=== PATIENT | female | born 1980 | race Caucasian/White ===

== ENCOUNTER 2024-02-28 10:52 | Outpatient (CLI) | payer OTHER, SELFPAY ==
[2024-02-28 15:08] LABS: Bacterial Vaginosis* Negative (Negative); Candida glab/krus NOT DETECTED (No Detected); Candida species DETECTED (No Detected); Trichomonas vaginalis NOT DETECTED (No Detected)
== END 2024-02-28 10:53 | disposition home or self-care (01) ==
PROVIDERS: Visit Provider Registered Nurse
DX: Z01.419 Encounter for gynecological examination (general) (routine) without abnormal findings (principal); N89.8 Other specified noninflammatory disorders of vagina; D64.9 Anemia, unspecified; N92.0 Excessive and frequent menstruation with regular cycle; Z13.6 Encounter for screening for cardiovascular disorders; Z13.1 Encounter for screening for diabetes mellitus
CPT/HCPCS: 80061; 81513; 82728; 82947; 83540; 83550; 84443; 87481; 87661

== ENCOUNTER 2024-03-13 14:45 | Outpatient (CLI) | payer OTHER, SELFPAY ==
--- NOTE | 2024-03-13 15:00 | CRLHL7_ITS ---
For Patients: As a result of the Century Cures Act, medical imaging exams and procedure reports are released immediately into your electronic medical record. You may view this report before your referring provider. If you have questions, please contact your health care provider. INDICATION: Excessive and frequent menstruation COMPARISON: none TECHNIQUE: 2D guerra scale and color Doppler images were acquired of the pelvis using a transabdominal and transvaginal approach. FINDINGS: Posterior uterine fibroid noted which measures 1.4 x 1.2 x 1.4 cm. Uterus measures 8.6 cm in length by 5.1 cm in AP diameter by 6.0 cm in transverse dimension. The endometrial lining measures 11 mm in composite thickness. The right ovary measures 3.1 x 1.7 x 3.4 cm in size and the left ovary measures 2.5 x 1.7 x 1.1 cm. The ovaries demonstrate normal arterial and venous blood flow on color Doppler analysis. There are no suspicious fluid collections within the cul-de-sac. Simple cyst right ovary measures 2.2 cm. IMPRESSION: Endometrium measures 11 millimeters. No endometrial fluid. Small intramural fibroid noted measuring 1.4 cm. Dictated by Maxx Lewis MD @ 03/15/2024 7:17:28 AM (Electronically Signed)
== END 2024-03-13 14:46 | disposition home or self-care (01) ==
LOC: US 14:46
PROVIDERS: Visit Provider Registered Nurse
DX: N92.0 Excessive and frequent menstruation with regular cycle (principal); D25.1 Intramural leiomyoma of uterus; N83.202 Unspecified ovarian cyst, left side
CPT/HCPCS: 76830; 76856

== ENCOUNTER 2025-03-05 10:41 | Outpatient (CLI) | payer OTHER, SELFPAY ==
[2025-03-07 08:32] LABS: HPV Source Cervix; HPV, High Risk by TMA Not Detected
== END 2025-03-05 10:42 | disposition home or self-care (01) ==
PROVIDERS: Visit Provider Registered Nurse
DX: Z11.51 Encounter for screening for human papillomavirus (HPV) (principal); Z12.4 Encounter for screening for malignant neoplasm of cervix
CPT/HCPCS: 87624; 87625; 88141; 88142

== ENCOUNTER 2025-03-22 09:32 | Outpatient (CLI) | payer OTHER, SELFPAY ==
--- NOTE | 2025-03-22 10:53 | P.ANES_ITS ---
Anesthesia Charges Start Date/Time Anesthesia Start Date: 03/22/25 Anesthesia Start Time: 10:17 Stop Date/Time Anesthesia Stop Date: 03/22/25 Anesthesia Stop Time: 10:40 Coding CPT Codes CPT Codes: DIOMEDES LWR INTST SCR COLSC - [id number] ([id number]) P1 - NORMAL HEALTHY PATIENT, QK - CHARGING CAR OPERATOR 2-4 CNCRNT ANES PROC, QX - PUBLIC RELATIONS ANALYST SVC W/ MED DIRECTION
--- NOTE | 2025-03-22 10:53 | W.ANESCHARGE ---
Anesthesia Charges Start Date/Time Anesthesia Start Date: 03/22/25 Anesthesia Start Time: 10:17 Stop Date/Time Anesthesia Stop Date: 03/22/25 Anesthesia Stop Time: 10:40 Coding CPT Codes CPT Codes: DIOMEDES LWR INTST SCR COLSC - [id number] ([id number]) P1 - NORMAL HEALTHY PATIENT, QK - COPYMAN 2-4 CNCRNT ANES PROC, QX - POSTMASTER SVC W/ MED DIRECTION
--- NOTE | 2025-03-22 11:22 | P.ANES_ITS ---
Anesthesia Charges Start Date/Time Anesthesia Start Date: 03/22/25 Anesthesia Start Time: 10:17 Stop Date/Time Anesthesia Stop Date: 03/22/25 Anesthesia Stop Time: 10:40 Coding CPT Codes CPT Codes: DIOMEDES LWR INTST SCR COLSC - [id number] ([id number]) P1 - NORMAL HEALTHY PATIENT, QK - QUILTER FIXER 2-4 CNCRNT ANES PROC, QX - MILLING PLANER OPERATOR SVC W/ MED DIRECTION
--- NOTE | 2025-03-22 11:22 | W.ANESCHARGE ---
Anesthesia Charges Start Date/Time Anesthesia Start Date: 03/22/25 Anesthesia Start Time: 10:17 Stop Date/Time Anesthesia Stop Date: 03/22/25 Anesthesia Stop Time: 10:40 Coding CPT Codes CPT Codes: DIOMEDES LWR INTST SCR COLSC - [id number] ([id number]) P1 - NORMAL HEALTHY PATIENT, QK - DRYING ROOM ATTENDANT 2-4 CNCRNT ANES PROC, QX - UNDERBASTER SVC W/ MED DIRECTION
== END 2025-03-22 09:33 | disposition home or self-care (01) ==
LOC: OP CLINIC 09:33
PROVIDERS: Visit Provider Surgery
DX: Z12.11 Encounter for screening for malignant neoplasm of colon (principal)
CPT/HCPCS: 00812; 45378; J2704